=== PATIENT | female | born 1995 | race Caucasian/White ===

== ENCOUNTER 2017-06-28 13:40 | Inpatient (IN) | payer OTHER ==
[2017-06-28] VITALS (7 sets, daily range): BP systolic 107–119; BP diastolic 59–73; PULSE 73–92; RESP 3–18; TEMP 97.9–98.2
[~2017-06-28] VITALS: Ht 149.9 cm; Wt 50.8 kg
[~2017-06-28 13:40] MED LIST: PROT40TA PO
--- NOTE | 2017-06-28 14:17 | PD ---
HPI Chief Complaint Contractions Travel History International Travel<30 Days: No Contact w/Intl Traveler<30Days: No Known Affected Area: No History of Present Illness HPI Patient is a 22-year-old at 40/3 who presents today for contractions. She states she went to her primary care office earlier today, had some contractions, had cervical dilation 3 cm. She continues to have contractions at this time. Wishes to give "natural" does not wish for epidural at this time. GBS positive. Denies large gushes of fluid, abnormal discharge, bloody discharge, dysuria, hematuria, change in urine color/smell, abdominal pain other than contractions, back pain, nausea, vomiting, fever, chills, headache, change in vision. No other complaints today. Weeks Gestation: 40 Para: 3 : 4 Miscarriage: 0 : 0 History Past Medical History Medical History: Denies Significant Hx Past Surgical History Surgical History: No Previous Surgery Family History Family History: Negative Social History Alcohol Use: No Tobacco Use: No Substance Abuse: No Allergies-Medications (Allergen,Severity, Reaction): Coded Allergies: No Known Allergies (Unverified Adverse Reaction, Unknown, 05/14/17) Home Meds Reported Medications Pantoprazole (Protonix) 40 Mg Tab, 40 MG PO DAILY for Reflux, #30 TAB 0 Refills 04/10/16 Review of Systems General / Constitutional: No: Fever, Chills Eyes: No: Diploplia, Blurred Vision, Visual changes HENT: No: Headaches, Vertigo Cardiovascular: No: Irregular Rhythm, Chest Pain or Discomfort Respiratory: No: Cough, Short of Breath, Wheezing Gastrointestinal: No: Nausea, Vomiting, Diarrhea, Abdominal Pain, Hematemesis, Hematochezia, Changes in Bowel Habits, Indigestion Genitourinary: No: Urgency, Frequency, Dysuria, Nocturia, Hematuria, Discharge , Vaginal Bleeding Musculoskeletal: Cramping, No: Limited ROM, Weakness Skin: No Rash, No Itching, No Dryness, No Lumps Neurologic: No: Weakness, Dizziness, Syncope Psychiatric: No: Anxiety, Depression Endocrine: No: Polydipsia, Polyuria Hematologic/Lymphatic: No Easy Bruising, No Lymph Node Enlargement Physical Exam Narrative GENERAL: Well-nourished, well-developed patient. SKIN: Warm and dry. HEAD: Normocephalic and atraumatic. EYES: No scleral icterus. No injection or drainage. ENT: No nasal drainage noted. Mucous membranes pink. Airway patent. NECK: Supple, trachea midline. No JVD. CARDIOVASCULAR: Regular rate and rhythm without murmurs, gallops, or rubs. RESPIRATORY: Breath sounds equal bilaterally. No accessory muscle use. ABDOMEN/GI: Abdomen soft, non-tender, bowel sounds present, no rebound, no guarding GENITOURINARY: External Genitalia: intact and normal in appearance Cervix: Posterior Dilatation: 6 Effacement: 7 Station: -1 Presentation: Vertex Membranes: Intact Uterine Contractions: 3-4 minute FHT's: Category: 1 Baseline: 140 Reactive: Yes Variability: Moderate Decels: None EXTREMITIES: No cyanosis or edema. BACK: Nontender without obvious deformity. No CVA tenderness. NEUROLOGICAL: Awake and alert. Motor and sensory grossly within normal limits. Five out of 5 muscle strength in all muscle groups. Normal speech. Data Data Vital Signs Reviewed: Yes Group B Strep: Positive MDM Plan 22-year-old at 40/3 presents today for contractions. Reported 3 cm dilation and office earlier today, 6 cm on examination here. No spontaneous rupture membranes at this time. GBS positive. GBS positive -start penicillin treatment Labor -Expectant management -FHT category 1, reassuring -Continue FHT monitoring -Defers epidural at this time TARIK Merchant Diagnosis Diagnosis: Primary Impression: Normal labor Additional Impressions: 40 weeks gestation of GBS carrier Christian Higuera MD R1 Jun 28, 2017 14:17
[2017-06-28] MEDS ORDERED: LACTATED RINGER'S 1000 ML INJ 1,000 ML IV PRN (14:23)
[2017-06-28] MEDS ORDERED: LACTATED RINGER'S 1000 ML INJ 1,000 ML IV SCH (14:23)
[2017-06-28] MEDS ORDERED: OXYTOCIN 30 UNITS-500ML PREMIX 500 ML IV ONE (14:30)
[2017-06-28] MEDS ORDERED: LIDOCAINE HCL 1% 50 ML VIAL I-DERMAL PRN (14:30)
[2017-06-28] MEDS ORDERED: PENICILLIN G POTASSIUM INJ 5,000,000 UNITS in SODIUM CHLORIDE 0.9% INJ 100 ML IV ONE (14:30)
[2017-06-28] MEDS ORDERED: MINERAL OIL 10 ML VIAL TOPICAL PRN (14:30)
[2017-06-28] MEDS ORDERED: CITRIC ACID-SODIUM CITRATE LIQ 30 ML UDC PO SCH (14:30)
[2017-06-28] MEDS ORDERED: SODIUM CHLORID 0.9% 500 ML INJ 500 ML IV PRN (14:30)
[2017-06-28] MEDS ORDERED: LIDOCAINE HCL 1% 50 ML VIAL INFIL PRN (14:30)
[2017-06-28] MEDS ORDERED: SODIUM CHLOR 0.9% 1000 ML INJ 1,000 ML IV PRN (14:43)
[2017-06-28 15:03] LABS: AUTOMATED NEUTROPHIL # 7.6 TH/MM3 (1.8-7.7); BASOPHIL % 0.2 % (0.0-2.0); EOSINOPHIL % 0.3 % (0.0-4.0); HEMATOCRIT 31.2 % (35.0-46.0); HEMOGLOBIN 11.2 GM/DL (11.6-15.3); LYMPH % 19.7 % (9.0-44.0); MEAN CELL VOLUME 76.6 FL (80.0-100.0); MEAN CORPUSCULAR HEMOGLOBIN 27.4 PG (27.0-34.0); MEAN CORPUSCULAR HGB CONC 35.8 % (32.0-36.0); MEAN PLATELET VOLUME 9.3 FL (7.0-11.0); MONO % 6.5 % (0.0-8.0); MONOCYTE # 0.7 TH/MM3 (0-0.9); NEUT % 73.3 % (16.0-70.0); PLATELET COUNT 227 TH/MM3 (150-450); RED BLOOD COUNT 4.07 MIL/MM3 (4.00-5.30); RED CELL DISTRIBUTION WIDTH 15.1 % (11.6-17.2); WHITE BLOOD COUNT 10.3 TH/MM3 (4.0-11.0)
[2017-06-28 15:10] LABS: BILIRUBIN, URINE NEG (NEG); BLOOD, URINE MOD (NEG); GLUCOSE,URINE NEG (NEG); KETONE, URINE 10 mg/dL (NEG); MUCUS URINE FEW /lpf (OCC); NITRITE,URINE NEG (NEG); SQUAMOUS EPITHELIAL CELL URINE 3 /hpf (0-5); URINE COLOR YELLOW (YELLW/STRAW); URINE LEUKOCYTE ESTERASE TRACE (NEG)
--- NOTE | 2017-06-28 15:42 | HHI.HP ---
History & Physical H&P HPI Chief Complaint Contractions Travel History International Travel<30 Days: No Contact w/Intl Traveler<30Days: No Known Affected Area: No History of Present Illness HPI Patient is a 22-year-old at 40/3 who presents today for contractions. She states she went to her primary care office earlier today, had some contractions, had cervical dilation 3 cm. She continues to have contractions at this time. Wishes to give "natural" does not wish for epidural at this time. GBS positive. Denies large gushes of fluid, abnormal discharge, bloody discharge, dysuria, hematuria, change in urine color/smell, abdominal pain other than contractions, back pain, nausea, vomiting, fever, chills, headache, change in vision. No other complaints today. Weeks Gestation: 40 Para: 3 : 4 Miscarriage: 0 : 0 History (Limited) History Past Medical History Medical History: Denies Significant Hx Past Surgical History Surgical History: No Previous Surgery Family History Family History: Negative Social History Alcohol Use: No Tobacco Use: No Substance Abuse: No Allergies-Medications Allergies-Medications (Allergen,Severity, Reaction): Coded Allergies: No Known Allergies (Unverified Adverse Reaction, Unknown, 05/14/17) Home Meds Reported Medications Pantoprazole (Protonix) 40 Mg Tab, 40 MG PO DAILY for Reflux, #30 TAB 0 Refills 04/10/16 ROS Review of Systems General / Constitutional: No: Fever, Chills Eyes: No: Diploplia, Blurred Vision, Visual changes HENT: No: Headaches, Vertigo Cardiovascular: No: Irregular Rhythm, Chest Pain or Discomfort Respiratory: No: Cough, Short of Breath, Wheezing Gastrointestinal: No: Nausea, Vomiting, Diarrhea, Abdominal Pain, Hematemesis, Hematochezia, Changes in Bowel Habits, Indigestion Genitourinary: No: Urgency, Frequency, Dysuria, Nocturia, Hematuria, Discharge , Vaginal Bleeding Musculoskeletal: Cramping, No: Limited ROM, Weakness Skin: No Rash, No Itching, No Dryness, No Lumps Neurologic: No: Weakness, Dizziness, Syncope Psychiatric: No: Anxiety, Depression Endocrine: No: Polydipsia, Polyuria Hematologic/Lymphatic: No Easy Bruising, No Lymph Node Enlargement Physical Exam Physical Exam Narrative GENERAL: Well-nourished, well-developed patient. SKIN: Warm and dry. HEAD: Normocephalic and atraumatic. EYES: No scleral icterus. No injection or drainage. ENT: No nasal drainage noted. Mucous membranes pink. Airway patent. NECK: Supple, trachea midline. No JVD. CARDIOVASCULAR: Regular rate and rhythm without murmurs, gallops, or rubs. RESPIRATORY: Breath sounds equal bilaterally. No accessory muscle use. ABDOMEN/GI: Abdomen soft, non-tender, bowel sounds present, no rebound, no guarding GENITOURINARY: External Genitalia: intact and normal in appearance Cervix: Posterior Dilatation: 6 Effacement: 7 Station: -1 Presentation: Vertex Membranes: Intact Uterine Contractions: 3-4 minute FHT's: Category: 1 Baseline: 140 Reactive: Yes Variability: Moderate Decels: None EXTREMITIES: No cyanosis or edema. BACK: Nontender without obvious deformity. No CVA tenderness. NEUROLOGICAL: Awake and alert. Motor and sensory grossly within normal limits. Five out of 5 muscle strength in all muscle groups. Normal speech. Data Data Data Vital Signs Reviewed: Yes Group B Strep: Positive MDM MDM Plan 22-year-old at 40/3 presents today for contractions. Reported 3 cm dilation and office earlier today, 6 cm on examination here. No spontaneous rupture membranes at this time. GBS positive. GBS positive -start penicillin treatment Labor -Expectant management -FHT category 1, reassuring -Continue FHT monitoring -Defers epidural at this time TARIK Merchant Diagnosis Diagnosis: Primary Impression: Normal labor Additional Impressions: 40 weeks gestation of GBS carrier Christian Higuera MD R1 Jun 28, 2017 14:17 Christian Higuera MD R1 Jun 28, 2017 15:42
--- NOTE | 2017-06-28 15:47 | PD.OB.DELI ---
Weeks gestation: 40 Anesthesia: None Episiotomy: None Vaginal Delivery: Normal, Spontaneous Presentation: Occiput anterior Nuchal Cord: x1 Delayed cord clamping (45 sec): Yes Infant: Female, Single Delivery date: Jun 28, 2017 Delivery time: 15:32 One Minute : 8 Five Minute : 9 Weight: 3000g Placenta: Spontaneous delivery, Intact, 3 vessel cord Laceration: No lacerations Estimated blood loss: 100cc Additional Information AROM was performed shortly proceeding delivery demonstrating clear fluid. Christian Higuera MD R1 Jun 28, 2017 15:47
[2017-06-28] MEDS ORDERED: ONDANSETRON ODT 4 MG TAB PO PRN (16:00)
[2017-06-28] MEDS ORDERED: DOCUSATE SODIUM 50 MG/SENNA 8.6 MG TAB PO PRN (16:00)
[2017-06-28] MEDS ORDERED: OXYTOCIN 30 UNITS-500ML PREMIX 500 ML IV SCH (16:00)
[2017-06-28] MEDS ORDERED: BENZOCAINE 20% TOPICAL SPRAY 60 ML CAN TOPICAL PRN (16:00)
[2017-06-28] MEDS ORDERED: SODIUM CHLORIDE 0.9% FLUSH 10 ML FLUSH IV FLUSH PRN (16:00)
[2017-06-28] MEDS ORDERED: MEASLES, MUMPS, RUBELLA VACCINE 0.5 ML VIAL SQ ONE (16:00)
[2017-06-28] MEDS ORDERED: ACETAMINOPHEN 325 MG TAB PO PRN (16:00)
[2017-06-28] MEDS ORDERED: WITCH HAZEL 50%/GLYCERIN 12.5% 40 PAD JAR TOPICAL PRN (16:00)
[2017-06-28] MEDS ORDERED: ZOLPIDEM TARTRATE 5 MG TAB PO PRN (16:00)
[2017-06-28] MEDS ORDERED: ALUMINUM/MAGNESIUM/SIMETH 30 ML CUP PO PRN (16:00)
[2017-06-28] MEDS ORDERED: DIPHTH/TETANUS/ACEL PERTUSSIS (BOOSTER) 0.5 ML VIAL/PFS IM ONE (16:00)
[2017-06-28] MEDS: IBUPROFEN 800 MG TAB PO PRN (16:47)
[2017-06-28] MEDS ORDERED: PENICILLIN G POTASSIUM INJ 2,500,000 UNITS in SODIUM CHLORIDE 0.9% INJ 100 ML IV SCH (18:30)
[2017-06-28] MEDS ORDERED: SODIUM CHLORIDE 0.9% FLUSH 10 ML FLUSH IV FLUSH SCH (21:00)
[2017-06-28] MEDS ORDERED: AMMONIA AROMATIC INHALANT 0.33 ML ONE (21:07)
[2017-06-29] MEDS: IBUPROFEN 800 MG TAB PO PRN ×2 (03:09→12:50)
--- NOTE | 2017-06-29 07:16 | HHI.OB ---
Subjective Post Day: 1 Remarks Postoperative day #1 AFVSS overnight. Decreased lochia. Denies dysuria. No breast tenderness. She is feeding the baby via breast. Appetite good. No nausea or vomiting. Positive flatus. Ambulating well. Denies calf pain or shortness of breath. No headache, lightheadedness, dizziness. Otherwise, she is doing well this morning and has no other complaints. Objective Objective Remarks GENERAL: Well-nourished, well-developed patient. CARDIOVASCULAR: Regular rate and rhythm without murmurs, gallops, or rubs. RESPIRATORY: Breath sounds equal bilaterally. No accessory muscle use. ABDOMEN/GI: Abdomen soft, non-tender. Fundus: Firm, non-tender at umbilicus. GENITOURINARY: Light to moderate bleeding. EXTREMITIES: No cyanosis or edema, non-tender, without signs of DVT. Medications and IVs Current Medications Medications (Trade) Dose Ordered Sig/Juancho Route Start Time Stop Time Status Last Admin (NS Flush) 2 ml BID IV FLUSH 06/28/17 21:00 (NS Flush) 2 ml UNSCH PRN IV FLUSH 06/28/17 16:00 (Tylenol) 650 mg Q4H PRN PO 06/28/17 16:00 (Motrin) 800 mg Q8H PRN PO 06/28/17 16:00 06/29/17 03:09 (Americaine 20% Top Spr) 1 spray Q4H PRN TOPICAL 06/28/17 16:00 06/28/17 17:40 (Tucks Pads) 1 applic QID PRN TOPICAL 06/28/17 16:00 06/28/17 17:40 (Lauren-Colace) 2 tab Q12H PRN PO 06/28/17 16:00 (Ambien) 5 mg HS PRN PO 06/28/17 16:00 (Mag-Al Plus Susp Liq) 15 ml Q8H PRN PO 06/28/17 16:00 (Zofran Odt) 4 mg Q6H PRN PO 06/28/17 16:00 Assessment/Plan Assessment and Plan 22y/o female who is PPD#1 s/p . -Continue routine care. -Motrin PRN pain. -Encouraged OOB. Advised pelvic rest for 6 wks. -Re: ctrl, she has not used control in the past and does not plan to use control in the future, advised to avoid in near future and to follow up with primary care for family planning, patient expressed understanding and agreed. -D/c likely tomorrow. Jeferson Higuera,Christian Rojas MD R1 Jun 29, 2017 07:16
[2017-06-29 08:00] VITALS: BP 97/60; PULSE 79; RESP 16; TEMP 97.8; O2SAT 98
[2017-06-29] MEDS ORDERED: CALCIUM CARBONATE 500 MG CHEWABLE TAB CHEW PRN (12:30)
[2017-06-29] MEDS ORDERED: PANTOPRAZOLE SOD 20 MG DELAYED RELEASE TAB PO ONE (12:47)
[2017-06-29 20:10] VITALS: BP 101/54; PULSE 79; RESP 16; TEMP 98.1
[2017-06-30] MEDS: IBUPROFEN 800 MG TAB PO PRN (00:27)
[2017-06-30] MEDS ORDERED: PERI PO (06:06)
[2017-06-30] MEDS ORDERED: IBUP1TAB7 PO (06:06)
--- NOTE | 2017-06-30 06:06 | HHI.DCPOC ---
Discharge Care Plan Diagnosis: (1) (spontaneous vaginal delivery) Report Symptoms to Your Doctor -Temperature above 100.5 degrees -Redness, of incision or excessive or foul smelling drainage -Unusual pain or calf pain -Increased vaginal bleeding -Painful or difficulty urinating -Feelings of extreme sadness or anxiety after 2 weeks Goals to Promote Your Health * To prevent worsening of your condition and complications * To maintain your health at the optimal level Directions to Meet Your Goals Take your medications as prescribed Follow your dietary instruction Follow activity as directed Ensure plenty of rest for recovery Drink fluids for hydration Keep your appointments as scheduled Take your immunizations and boosters as scheduled If your symptoms worsen call your PCP, if no PCP go to Urgent Care Center or Emergency Room Smoking is Dangerous to Your Health. Avoid second hand smoke Call the 24-hour crisis hotline for domestic abuse at Washington Moreno MD R2 Jun 30, 2017 06:06
--- NOTE | 2017-06-30 06:08 | HHI.OB ---
Subjective Post Day: 2 Remarks Pt seen and examined this morning. day # 2 AFVSS overnight. Decreased lochia. Denies dysuria. No breast tenderness. She is feeding the baby via breast. Appetite good. No nausea or vomiting. Patient has not yet had a bowel movement, but does endorse bowel gas. Ambulating well. Denies calf pain or shortness of breath. Otherwise, she is doing well this morning and has no other concerns. (Washington Moreno MD R2) Remarks Patient seen and evaluated with resident under direct supervision, agree with assessment and plan. (Manoj Jerome MD) Objective Vitals/I&O Vital Signs Date Time Temp Pulse Resp B/P (MAP) Pulse Ox O2 Delivery O2 Flow Rate FiO2 06/29/17 20:10 98.1 16 06/29/17 20:10 79 101/54 (70) 06/29/17 08:00 97.8 79 16 97/60 (72) 98 Objective Remarks GENERAL: Well-nourished, well-developed patient. CARDIOVASCULAR: Regular rate and rhythm without murmurs, gallops, or rubs. RESPIRATORY: Breath sounds equal bilaterally. No accessory muscle use. ABDOMEN/GI: Abdomen soft, non-tender. Fundus: Firm, non-tender at umbilicus. GENITOURINARY: Light to moderate bleeding. EXTREMITIES: No cyanosis or edema, non-tender, without signs of DVT. Medications and IVs Current Medications Medications (Trade) Dose Ordered Sig/Juancho Route Start Time Stop Time Status Last Admin (NS Flush) 2 ml BID IV FLUSH 06/28/17 21:00 (NS Flush) 2 ml UNSCH PRN IV FLUSH 06/28/17 16:00 (Tylenol) 650 mg Q4H PRN PO 06/28/17 16:00 (Motrin) 800 mg Q8H PRN PO 06/28/17 16:00 06/30/17 00:27 (Americaine 20% Top Spr) 1 spray Q4H PRN TOPICAL 06/28/17 16:00 06/28/17 17:40 (Tucks Pads) 1 applic QID PRN TOPICAL 06/28/17 16:00 06/28/17 17:40 (Lauren-Colace) 2 tab Q12H PRN PO 06/28/17 16:00 (Ambien) 5 mg HS PRN PO 06/28/17 16:00 (Mag-Al Plus Susp Liq) 15 ml Q8H PRN PO 06/28/17 16:00 (Zofran Odt) 4 mg Q6H PRN PO 06/28/17 16:00 (Tums Chew) 500 mg Q2H PRN CHEW 06/29/17 12:30 (Washington Moreno MD R2) Assessment/Plan Assessment and Plan 22y/o female who is PPD#2 s/p . -Continue routine care. -Motrin PRN pain. -Encouraged OOB. Advised pelvic rest for 6 wks. -Re: ctrl, she has not used control in the past and does not plan to use control in the future, advised to avoid in near future and to follow up with primary care for family planning, patient expressed understanding and agreed. -D/c today. Dw Dr. Jerome Discharge Planning Today (Washington Moreno MD R2) Washington Moreno MD R2 Jun 30, 2017 06:08 Manoj Jerome MD Jul 02, 2017 07:31
[2017-06-30 08:00] VITALS: BP 90/60; PULSE 69; RESP 18; TEMP 98
== END 2017-06-30 12:02 | disposition home or self-care (01) | DRG 775 ==
LOC: HOBED 13:40 → H2EA 14:22 → H1EA 17:52
PROVIDERS: ADMIT Obstetrics & Gynecology; ATTEND Obstetrics & Gynecology
PROC: 10E0XZZ Delivery of Products of Conception, External Approach (ICD-10-PCS; principal; 2017-06-28)
PROC: 10907ZC Drainage of Amniotic Fluid, Therapeutic from Products of Conception, Via Natural or Artificial Opening (ICD-10-PCS; 2017-06-28)
DX: O69.81X0 Labor and delivery complicated by cord around neck, without compression, not applicable or unspecified (principal); O99.824 Streptococcus B carrier state complicating childbirth; Z37.0 Single live birth; Z3A.40 40 weeks gestation of pregnancy; Z23 Encounter for immunization
CPT/HCPCS: 80307; 81001; 85025; 85461; 86850; 86900; 86901; 90384; 99283; J2540; J2590; J2790; J3010; J7120